=== PATIENT | male | born 1965 | race Caucasian/White ===

== ENCOUNTER 2016-08-22 05:20 | Emergency (ER) | payer OTHER ==
[~2016-08-22] VITALS: Ht 172.7 cm; Wt 90.0 kg
[2016-08-22 05:26] VITALS: BP 164/104; PULSE 100; RESP 18; TEMP 97.7; O2SAT 99
[2016-08-22 06:05] LABS: AUTOMATED NEUTROPHIL # 6.2 TH/MM3 (1.8-7.7); BASOPHIL % 0.4 % (0.0-2.0); EOSINOPHIL # 0.2 TH/MM3 (0-0.4); HEMATOCRIT 40.9 % (39.0-51.0); HEMO FLAGS DIFF FINAL; LYMPH % 24.7 % (9.0-44.0); LYMPHOCYTE # 2.5 TH/MM3 (1.0-4.8); MEAN CELL VOLUME 98.3 FL (80.0-100.0); MEAN CORPUSCULAR HEMOGLOBIN 34.7 PG (27.0-34.0); MEAN CORPUSCULAR HGB CONC 35.3 % (32.0-36.0); MONO % 11.6 % (0.0-8.0); NEUT % 61.3 % (16.0-70.0); PLATELET COUNT 125 TH/MM3 (150-450); RED BLOOD COUNT 4.16 MIL/MM3 (4.50-5.90); RED CELL DISTRIBUTION WIDTH 13.2 % (11.6-17.2)
--- NOTE | 2016-08-22 06:07 | PD ---
HPI Chief Complaint: Psychiatric Symptoms Time Seen by Provider: 05:45 Travel History International Travel<30 days: No Contact w/Intl Traveler<30days: No Traveled to known affect area: No History of Present Illness HPI 50-year-old male arrives as a [employer]. He stated he wanted to kill himself to after calling dispatch. He wanted to join his brother and have him. He drinks alcohol daily most recently 3 hours prior to ER evaluation. The patient is also been known to abuse benzodiazepines and cocaine. He has no homicidal ideation. He denies hallucinations. Location neuropsychiatric. Severity moderate. Timing constant PFSH Past Medical History Arthritis: Yes Blood Disorders: No Bipolar Disorder: Yes Anxiety: Yes Depression: Yes Heart Rhythm Problems: No Cardiac Catheterization: No Cardiovascular Problems: Yes (mi / htn) High Cholesterol: No Chemotherapy: No Congestive Heart Failure: No Cerebrovascular Accident: Yes (TIA) Diminished Hearing: No Endocrine: No GERD: Yes Genitourinary: No Hepatitis: No Hiatal Hernia: No Hypertension: Yes Immune Disorder: No Musculoskeletal: Yes Neurologic: Yes Psychiatric: Yes (Depression, suicidal ideation and previous attempts, alcohol abuse,See EMR) Reproductive: No Respiratory: No Immunizations Current: No Migraines: No Radiation Therapy: No Seizures: Yes (ETOH WITHDRAWAL ) Thyroid Disease: No Ulcer: No Past Surgical History Abdominal Surgery: Yes (APPENDECTOMY) AICD: No Appendectomy: Yes Arteriovenous Shunt: No Cholecystectomy: No Coronary Artery Bypass Graft: No Ear Surgery: No Endocrine Surgery: No Eye Surgery: No Genitourinary Surgery: No Gynecologic Surgery: No Insulin Pump: No Joint Replacement: No Oral Surgery: No Pacemaker: No Other Surgery: Yes Family History Family Myocardial Infarction: Yes Social History Alcohol Use: Yes (DAILY) Tobacco Use: Yes (1 PPD) Substance Use: Yes (pot etc) Allergies-Medications (Allergen,Severity, Reaction): Coded Allergies: Darvocet-N 100 (Verified Allergy, Severe, UPSET STOMACH, 08/22/16) Penicillin (Verified Allergy, Severe, 08/22/16) Reported Meds & Prescriptions Reported Meds & Active Scripts Active No Active Prescriptions or Reported Medications Review of Systems Except as stated in HPI: all other systems reviewed are Neg Physical Exam Narrative GENERAL: 50-year-old male well-nourished well-developed cooperative SKIN: Warm and dry. HEAD: Atraumatic. Normocephalic. EYES: Pupils equal and round. No scleral icterus. No injection or drainage. ENT: No nasal bleeding or discharge. Mucous membranes pink and moist. NECK: Trachea midline. No JVD. CARDIOVASCULAR: Regular rate and rhythm. No murmur appreciated. RESPIRATORY: No accessory muscle use. Clear to auscultation. Breath sounds equal bilaterally. GASTROINTESTINAL: Abdomen soft, non-tender, nondistended. Hepatic and splenic margins not palpable. MUSCULOSKELETAL: No obvious deformities. No clubbing. No cyanosis. No edema. NEUROLOGICAL: Awake and alert. No obvious cranial nerve deficits. Motor grossly within normal limits. Normal speech. PSYCHIATRIC: Somewhat tearful. Positive suicidal ideation. Homicidal ideation. Data Data Last Documented VS Vital Signs Date Time Temp Pulse Resp B/P Pulse Ox O2 Delivery O2 Flow Rate FiO2 08/22/16 05:26 97.7 100 18 164/104 99 Orders Complete Blood Count With Diff (08/22/16 05:45) Comprehensive Metabolic Panel (08/22/16 05:45) Drug Screen, Random Urine (08/22/16 05:45) Alcohol (Ethanol) (08/22/16 05:45) Tylenol (Acetaminophen) (08/22/16 05:45) Psych Screen (08/22/16 05:45) Sodium Chlor 0.9% 1000 Ml Inj (Ns 1000 M (08/22/16 06:30) Sodium Chlor 0.9% 1000 Ml Inj (Ns 1000 M (08/22/16 06:30) Potassium Chloride (Kcl) (08/22/16 06:30) Basic Metabolic Panel (Bmp) (08/22/16 07:30) Labs Laboratory Tests Test 08/22/16 05:50 White Blood Count 10.0 TH/MM3 Red Blood Count 4.16 MIL/MM3 Hemoglobin 14.5 GM/DL Hematocrit 40.9 % Mean Corpuscular Volume 98.3 FL Mean Corpuscular Hemoglobin 34.7 PG Mean Corpuscular Hemoglobin 35.3 % Concent Red Cell Distribution Width 13.2 % Platelet Count 125 TH/MM3 Mean Platelet Volume 8.9 FL Neutrophils (%) (Auto) 61.3 % Lymphocytes (%) (Auto) 24.7 % Monocytes (%) (Auto) 11.6 % Eosinophils (%) (Auto) 2.0 % Basophils (%) (Auto) 0.4 % Neutrophils # (Auto) 6.2 TH/MM3 Lymphocytes # (Auto) 2.5 TH/MM3 Monocytes # (Auto) 1.2 TH/MM3 Eosinophils # (Auto) 0.2 TH/MM3 Basophils # (Auto) 0.0 TH/MM3 CBC Comment DIFF FINAL Differential Comment Sodium Level 132 MEQ/L Potassium Level 3.0 MEQ/L Chloride Level 92 MEQ/L Carbon Dioxide Level 23.5 MEQ/L Anion Gap 17 MEQ/L Blood Urea Nitrogen 12 MG/DL Creatinine 0.98 MG/DL Estimat Glomerular Filtration 82 ML/MIN Rate Random Glucose 85 MG/DL Calcium Level 8.8 MG/DL Total Bilirubin 0.7 MG/DL Aspartate Amino Transf 107 U/L (AST/SGOT) Alanine Aminotransferase 42 U/L (ALT/SGPT) Alkaline Phosphatase 95 U/L Total Protein 8.2 GM/DL Albumin 3.6 GM/DL Urine Opiates Screen NEG Acetaminophen Level LESS THAN 2.0 MCG/ML Urine Barbiturates Screen NEG Urine Amphetamines Screen NEG Urine Benzodiazepines Screen NEG Urine Cocaine Screen NEG Urine Cannabinoids Screen NEG Ethyl Alcohol Level 268 MG/DL MDM Medical Decision Making Medical Screen Exam Complete: Yes Emergency Medical Condition: Yes Medical Record Reviewed: Yes Differential Diagnosis Altered mental status/psychosis due to infection/environmental exposure/ metabolic abnormality, polypharmacy, alcohol abuse/intoxication, illicit or prescribed drug abuse, malingering/secondary gain, non-organic psychiatric disease Narrative Course CBC & BMP Diagram 08/22/16 05:50 Oncoming provider will re-check BMP after 2L NS and 60meq K. Diagnosis Primary Impression: Depression with suicidal ideation Additional Impression: Alcohol abuse Scripts No Active Prescriptions or Reported Meds Raffaele Carrion MD Aug 22, 2016 06:07
[2016-08-22 06:14] LABS: AMPHETAMINE, URINE NEG (NEG); BARBITURATES, URINE NEG (NEG); COCAINE, URINE NEG (NEG)
[2016-08-22 06:19] LABS: ANION GAP 17 MEQ/L (5-15); AST (GOT) 107 U/L (15-37); BICARBONATE 23.5 MEQ/L (21.0-32.0); BLOOD UREA NITROGEN 12 MG/DL (7-18); CHLORIDE 92 MEQ/L (98-107); GLOMERULAR FILTRATION RATE 82 ML/MIN (>89); SODIUM (NA) 132 MEQ/L (136-145)
[2016-08-22 06:22] LABS: ALKALINE PHOSPHATASE 95 U/L (45-117); ALT (GPT) 42 U/L (12-78); TOTAL BILIRUBIN ADULT 0.7 MG/DL (0.2-1.0)
[2016-08-22 06:24] LABS: ACETAMINOPHEN LESS THAN 2.0 MCG/ML (10.0-30.0)
[2016-08-22] MEDS ORDERED: SODIUM CHLOR 0.9% 1000 ML INJ 1,000 ML IV ONE ×2 (06:30)
[2016-08-22] MEDS ORDERED: POTASSIUM CHLORIDE 20 MEQ CONTROLLED RELEASE TAB PO ONE (06:30)
[2016-08-22 08:35] VITALS: BP 147/105; PULSE 116; RESP 18; O2SAT 99
[2016-08-22 09:16] LABS: BICARBONATE 24.6 MEQ/L (21.0-32.0)
[2016-08-22 09:25] LABS: POTASSIUM 2.9 MEQ/L (3.5-5.1)
[2016-08-22] MEDS ORDERED: CALCIUM CHLORIDE INJ 1 GM in DEXTROSE 5% IN WATER 100ML INJ 100 ML IV ONE ×2 (09:30)
[2016-08-22] MEDS ORDERED: POTASSIUM CHLOR 20 MEQ PREMIX 100 ML IV ONE (09:30)
[2016-08-22 09:49] LABS: MAGNESIUM 1.1 MG/DL (1.5-2.5)
[2016-08-22 10:54] VITALS: BP 134/79; PULSE 83; RESP 16; O2SAT 97
[2016-08-22] MEDS ORDERED: LORazepam 2 MG/ML VIAL IV PUSH ONE (13:45)
[2016-08-22 16:34] LABS: BICARBONATE 27.5 MEQ/L (21.0-32.0); POTASSIUM 3.8 MEQ/L (3.5-5.1)
--- NOTE | 2016-08-22 16:51 | PD ---
Physical Exam Narrative Patient was seen by ED physician and signed out to me. Data Data Last Documented VS Vital Signs Date Time Temp Pulse Resp B/P Pulse Ox O2 Delivery O2 Flow Rate FiO2 08/22/16 10:54 83 16 134/79 97 Room Air 08/22/16 05:26 97.7 Orders Complete Blood Count With Diff (08/22/16 05:45) Comprehensive Metabolic Panel (08/22/16 05:45) Drug Screen, Random Urine (08/22/16 05:45) Alcohol (Ethanol) (08/22/16 05:45) Tylenol (Acetaminophen) (08/22/16 05:45) Psych Screen (08/22/16 05:45) Sodium Chlor 0.9% 1000 Ml Inj (Ns 1000 M (08/22/16 06:30) Sodium Chlor 0.9% 1000 Ml Inj (Ns 1000 M (08/22/16 06:30) Potassium Chloride (Kcl) (08/22/16 06:30) Basic Metabolic Panel (Bmp) (08/22/16 07:30) Magnesium (Mg) (08/22/16 09:28) Phosphorus (Po4) (08/22/16 09:28) Potassium Chlor 20 Meq Premix (Kcl 20 Me (08/22/16 09:30) Calcium Chloride Inj (Calcium Chloride I (08/22/16 09:30) Basic Metabolic Panel (Bmp) (08/22/16 11:31) Diet Regular Basic (08/22/16 Lunch) Lorazepam Inj (Ativan Inj) (08/22/16 13:45) Labs Laboratory Tests Test 08/22/16 08/22/16 08/22/16 05:50 08:30 16:00 White Blood Count 10.0 TH/MM3 Red Blood Count 4.16 MIL/MM3 Hemoglobin 14.5 GM/DL Hematocrit 40.9 % Mean Corpuscular Volume 98.3 FL Mean Corpuscular Hemoglobin 34.7 PG Mean Corpuscular Hemoglobin 35.3 % Concent Red Cell Distribution Width 13.2 % Platelet Count 125 TH/MM3 Mean Platelet Volume 8.9 FL Neutrophils (%) (Auto) 61.3 % Lymphocytes (%) (Auto) 24.7 % Monocytes (%) (Auto) 11.6 % Eosinophils (%) (Auto) 2.0 % Basophils (%) (Auto) 0.4 % Neutrophils # (Auto) 6.2 TH/MM3 Lymphocytes # (Auto) 2.5 TH/MM3 Monocytes # (Auto) 1.2 TH/MM3 Eosinophils # (Auto) 0.2 TH/MM3 Basophils # (Auto) 0.0 TH/MM3 CBC Comment DIFF FINAL Differential Comment Sodium Level 132 MEQ/L 138 MEQ/L 141 MEQ/L Potassium Level 3.0 MEQ/L 2.9 MEQ/L 3.8 MEQ/L Chloride Level 92 MEQ/L 101 MEQ/L 105 MEQ/L Carbon Dioxide Level 23.5 MEQ/L 24.6 MEQ/L 27.5 MEQ/L Anion Gap 17 MEQ/L 12 MEQ/L 9 MEQ/L Blood Urea Nitrogen 12 MG/DL 12 MG/DL 9 MG/DL Creatinine 0.98 MG/DL 0.85 MG/DL 0.71 MG/DL Estimat Glomerular Filtration 82 ML/MIN 96 ML/MIN 118 ML/MIN Rate Random Glucose 85 MG/DL 107 MG/DL 78 MG/DL Calcium Level 8.8 MG/DL 7.8 MG/DL 9.2 MG/DL Total Bilirubin 0.7 MG/DL Aspartate Amino Transf 107 U/L (AST/SGOT) Alanine Aminotransferase 42 U/L (ALT/SGPT) Alkaline Phosphatase 95 U/L Total Protein 8.2 GM/DL Albumin 3.6 GM/DL Urine Opiates Screen NEG Acetaminophen Level LESS THAN 2.0 MCG/ML Urine Barbiturates Screen NEG Urine Amphetamines Screen NEG Urine Benzodiazepines Screen NEG Urine Cocaine Screen NEG Urine Cannabinoids Screen NEG Ethyl Alcohol Level 268 MG/DL Phosphorus Level 3.3 MG/DL Magnesium Level 1.1 MG/DL MDM Supervised Visit with HENNY: No Interpretation(s) 1649 PM. Repeated BMP, electrolyte abnormality were corrected. Patient is medically cleared for psych Evaluation and disposition. Diagnosis Primary Impression: Depression with suicidal ideation Additional Impression: Alcohol abuse Scripts No Active Prescriptions or Reported Meds Ramez Borjas MD Aug 22, 2016 16:51
[2016-08-22 17:55] VITALS: BP 164/83; PULSE 84; RESP 18; TEMP 98.8; O2SAT 98
[2016-08-22] MEDS ORDERED: ACETAMINOPHEN 325 MG TAB PO PRN (18:00)
[2016-08-22] MEDS ORDERED: FLUMAZENIL 1 MG/10 ML VIAL IV PUSH PRN (18:00)
[2016-08-22] MEDS ORDERED: ONDANSETRON HCL 4 MG/2 ML VIAL IV PUSH PRN (18:00)
[2016-08-22] MEDS ORDERED: LORazepam 2 MG/ML VIAL IV PUSH PRN ×4 (18:00)
[2016-08-22] MEDS: LORazepam 2 MG TAB PO PRN ×2 (21:01→23:40)
[2016-08-22 23:10] VITALS: BP 138/84; PULSE 68; RESP 18; O2SAT 99
[2016-08-23 02:00] VITALS: BP 157/93; PULSE 75; RESP 18; O2SAT 97
[2016-08-23] MEDS: LORazepam 1 MG TAB PO PRN ×3 (02:00→14:46)
[2016-08-23 06:09] VITALS: BP 121/87; PULSE 70; RESP 18; O2SAT 99
[2016-08-23 11:30] VITALS: BP 164/84; PULSE 70; RESP 18; TEMP 98.4; O2SAT 100
== END 2016-08-23 17:10 ==
LOC: NEPC 05:20 → NEPJ 08-23 17:10
DX: F32.9 Major depressive disorder, single episode, unspecified (principal); R45.851 Suicidal ideations; F10.10 Alcohol abuse, uncomplicated; I25.2 Old myocardial infarction; I10 Essential (primary) hypertension; F17.210 Nicotine dependence, cigarettes, uncomplicated; Z86.73 Personal history of transient ischemic attack (TIA), and cerebral infarction without residual deficits; E87.8 Other disorders of electrolyte and fluid balance, not elsewhere classified
CPT/HCPCS: 80048; 80053; 80307; 80329; 83735; 84100; 85025; 96361; 96365; 96366; 96368; 96372; 96375; 99285; J2060; J3480; J7030; 80320; G0480